=== PATIENT | female | born 1975 | race Two or more races ===

== ENCOUNTER 2017-08-16 09:58 | Emergency (ER) | payer SELFPAY ==
[~2017-08-16] VITALS: Ht 167.6 cm; Wt 81.6 kg
[2017-08-16] VITALS (13 sets, daily range): BP systolic 103–126; BP diastolic 52–84
[2017-08-16] MEDS ORDERED: DiphenhydrAMINE 50mg/ml Inj IM ONE (10:15)
[2017-08-16] MEDS ORDERED: Haloperidol 5mg/ml Inj IM ONE (10:15)
[2017-08-16 10:30] LABS: APPEARANCE,URINE CLEAR; KETONES,URINE 3+ (NEGATIVE); LEUKOCYTE ESTERASE ,URINE 1+ (NEGATIVE); NITRITE,URINE NEGATIVE (NEGATIVE); PH,URINE 6 (4.5-8.0); PROTEIN,URINE 3+ (NEGATIVE); UROBILINOGEN,URINE NORMAL MG/DL (0.0-1.0)
[2017-08-16] MEDS ORDERED: Thiamine HCl 100mg/ml 2 ml Inj IV SCH (10:30)
[2017-08-16 10:32] LABS: MEAN CORPUSCULAR HEMOGLOBIN 29.6 PG (27.0-31.0); MEAN CORPUSCULAR HGB CONC 32.2 G/DL (32.0-36.0); MEAN CORPUSCULAR VOLUME 92 FL (80-99); MEAN PLATELET VOLUME 7.1 FL (6.5-10.1); PLATELET COUNT 290 K/UL (150-450); RED BLOOD COUNT 4.08 M/UL (4.20-5.40); RED CELL DISTRIBUTION WIDTH 12.4 % (11.6-14.8); WHITE BLOOD COUNT 20.6 K/UL (4.8-10.8)
[2017-08-16 10:42] LABS: BACTERIA,URINE FEW /HPF; MUCUS,URINE FEW /LPF (NONE/OCC); SQUAMOUS EPITHELIAL CELL,UR FEW /LPF (NONE/OCC)
[2017-08-16 10:46] LABS: ANION GAP 21 mmol/L (5-15); CALCIUM 8.4 MG/DL (8.5-10.1); CARBON DIOXIDE 18 MMOL/L (21-32); CHLORIDE 106 MMOL/L (98-107); GLOMERULAR FILTRATION RATE > 60 mL/min (>60); POTASSIUM 3.3 MMOL/L (3.5-5.1); SODIUM 145 MMOL/L (136-145)
[2017-08-16 10:58] LABS: ALANINE AMINOTRANSFERASE 43 U/L (12-78); ALCOHOL < 3 mg/dL; ASPARTATE AMINO TRANSFERASE 48 U/L (15-37); THYROID STIMULATING HORMONE 1.192 uiU/mL (0.358-3.740); TOTAL PROTEIN 7.7 G/DL (6.4-8.2)
[2017-08-16 11:00] LABS: ACETAMINOPHEN < 2 MCG/ML (10-30)
[2017-08-16] MEDS ORDERED: LORazepam Inj 2mg/ml 1ml IV ONE (11:00)
[2017-08-16 11:14] LABS: BAND NEUTROPHILS % (MANUAL) 0 % (0-8); BASOPHILS % (MANUAL) 0 % (0-2); EOSINOPHILS % (MANUAL) 0 % (0-3); LYMPHOCYTES % (MANUAL) 8 % (20-45); NEUTROPHILS % (MANUAL) 88 % (45-75); PLATELET ESTIMATE ADEQUATE; PLATELET MORPHOLOGY NORMAL; TOTAL CELLS COUNTED 100
--- NOTE | 2017-08-16 12:52 | Diagnostic Imaging Report ---
Indication: Altered level of consciousness Technique: Continuous helical CT scanning of the head was performed without intravenous contrast material. Axial and coronal 5 mm sections were generated. Radiation dose was minimized using automated exposure control Dose: Total Dose Length Product - DLP [address] Dose Index - CTDIvol(s) 70.38 mGy. Comparison: none Findings: The ventricular system is normal in size and configuration. There is no shift of midline structures. No abnormal extra-axial fluid collections are noted. There is no evidence of intracerebral bleeding. No other abnormal high or low density areas are noted within the brain. The mastoids are clear. Included sinuses are clear. The included orbits are unremarkable. The calvarium is intact Impression: Normal CT scan of the head without contrast material. The CT scanner at [facility] is accredited by the [employer] and the scans are performed using protocols designed to limit radiation exposure to as low as reasonably achievable to attain images of sufficient resolution adequate for diagnostic evaluation.
--- NOTE | 2017-08-16 14:16 | Emergency Room Report ---
History of Present Illness General Chief Complaint: Behavioral Complaint Source: EMS Present Illness HPI Patient is brought in by [place] [employer]. The patient is well- known to be a homeless woman. She typically is chronically hallucinating but typically does not have severe behavioral issues. Today, the police department was called because she was running naked through the streets. She also had a rope tied around her head. She was being her head on the cement sidewalk. She was very combative. The patient is unable to give a history secondary to her mental status. Allergies: Coded Allergies: UNABLE TO ASSESS (Unverified , 08/16/17) Patient History Past Medical History: unable to obtain Past Surgical History: unable to obtain Pertinent Family History: unable to obtain Social History: Reports: alcohol use Nursing Documentation-[facility] Past Medical History Deferred: Pt Cognitively Impaired Review of Systems All Other Systems: limited Physical Exam Vital Signs Date Time Temp Pulse Resp B/P (MAP) Pulse Ox O2 Delivery O2 Flow Rate FiO2 08/16/17 09:55 112 20 125/84 98 Room Air 08/16/17 11:12 98.5 Sp02 EP Interpretation: reviewed, normal General Appearance: no apparent distress, alert, GCS 15, non-toxic, other - Agitated, hallucinating Head: normocephalic, other - Dry blood on the posterior scalp. ENT: hearing grossly normal, normal pharynx, no angioedema, normal voice Neck: full range of motion, supple/symm/no masses Respiratory: chest non-tender, lungs clear, normal breath sounds, no respiratory distress, no retraction, no accessory muscle use, speaking full sentences Cardiovascular #1: no edema, tachycardia Gastrointestinal: normal bowel sounds, non tender, soft, non-distended, no guarding, no rebound Rectal: deferred Musculoskeletal: back normal, normal range of motion, non-tender Neurologic: alert, responsive, motor strength/tone normal, sensory intact, speech normal Psychiatric: other - psychotic Reflexes: 3+ bicep (R), 3+ bicep (L), 3+ tricep (R), 3+ tricep (L), 3+ knee (R) , 3+ knee (L), 3+ ankle (R), 3+ ankle (L) Skin: normal color, no rash, warm/dry, well hydrated Medical Decision Making Diagnostic Impression: Primary Impression: Psychosis Additional Impression: Drug intoxication with delirium ER Course This patient presents with psychosis and drug intoxication. She was also found to have significantly elevated white blood cell count. I am unsure of the etiology of this. There is no evidence of urinary tract infection with a normal urinalysis. Chest x-ray is normal. There are no physical exam findings consistent with a meningitis. CT of the head is negative. This could be an inflammatory response to drug use. Regardless, given that I cannot properly evaluate this patient, I will go ahead and do a CT of the abdomen and pelvis to further investigate the etiology of the leukocytosis. I will also hydrate the patient and repeat the laboratory studies. Patient is turned over to Dr. Tsang. Laboratory Tests Test 08/16/17 09:18 08/16/17 14:00 White Blood Count 20.6 K/UL (4.8-10.8) H 23.5 K/UL (4.8-10.8) *H Red Blood Count 4.08 M/UL (4.20-5.40) L 3.71 M/UL (4.20-5.40) L Hemoglobin 12.1 G/DL (12.0-16.0) 11.1 G/DL (12.0-16.0) L Hematocrit 37.4 % (37.0-47.0) 34.1 % (37.0-47.0) L Mean Corpuscular Volume 92 FL (80-99) 92 FL (80-99) Mean Corpuscular Hemoglobin 29.6 PG (27.0-31.0) 30.0 PG (27.0-31.0) Mean Corpuscular Hemoglobin Concent 32.2 G/DL (32.0-36.0) 32.7 G/DL (32.0-36.0) Red Cell Distribution Width 12.4 % (11.6-14.8) 12.9 % (11.6-14.8) Platelet Count 290 K/UL (150-450) 261 K/UL (150-450) Mean Platelet Volume 7.1 FL (6.5-10.1) 7.3 FL (6.5-10.1) Neutrophils (%) (Auto) % (45.0-75.0) % (45.0-75.0) Lymphocytes (%) (Auto) % (20.0-45.0) % (20.0-45.0) Monocytes (%) (Auto) % (1.0-10.0) % (1.0-10.0) Eosinophils (%) (Auto) % (0.0-3.0) % (0.0-3.0) Basophils (%) (Auto) % (0.0-2.0) % (0.0-2.0) Differential Total Cells Counted 100 100 Neutrophils % (Manual) 88 % (45-75) H 84 % (45-75) H Lymphocytes % (Manual) 8 % (20-45) L 10 % (20-45) L Monocytes % (Manual) 4 % (1-10) 4 % (1-10) Eosinophils % (Manual) 0 % (0-3) 0 % (0-3) Basophils % (Manual) 0 % (0-2) 0 % (0-2) Band Neutrophils 0 % (0-8) 2 % (0-8) Platelet Estimate Adequate Adequate Platelet Morphology Normal Normal Red Blood Cell Morphology Normal Normal Urine Color Pale yellow Urine Appearance Clear Urine pH 6 (4.5-8.0) Urine Specific [place] 1.020 (1.005-1.035) Urine Protein 3+ (NEGATIVE) H Urine Glucose (UA) 1+ (NEGATIVE) H Urine Ketones 3+ (NEGATIVE) H Urine Occult Blood 4+ (NEGATIVE) H Urine Nitrite Negative (NEGATIVE) Urine Bilirubin Negative (NEGATIVE) Urine Urobilinogen Normal MG/DL (0.0-1.0) Urine Leukocyte Esterase 1+ (NEGATIVE) H Urine RBC 2-4 /HPF (0 - 2) H Urine WBC 2-4 /HPF (0 - 2) Urine Squamous Epithelial Cells Few /LPF (NONE/OCC) Urine Bacteria Few /HPF (NONE) Urine Mucus Few /LPF (NONE/OCC) H Urine HCG, Qualitative Negative Sodium Level 145 MMOL/L (136-145) Potassium Level 3.3 MMOL/L (3.5-5.1) L Chloride Level 106 MMOL/L (98-107) Carbon Dioxide Level 18 MMOL/L (21-32) L Anion Gap 21 mmol/L (5-15) H Blood Urea Nitrogen 19 mg/dL (7-18) H Creatinine 1.0 MG/DL (0.55-1.30) Estimate Glomerular Filtration Rate > 60 mL/min (>60) Glucose Level 75 MG/DL (74-106) Calcium Level 8.4 MG/DL (8.5-10.1) L Total Bilirubin 0.5 MG/DL (0.2-1.0) Aspartate Amino Transferase (AST) 48 U/L (15-37) H Alanine Aminotransferase (ALT) 43 U/L (12-78) Alkaline Phosphatase 71 U/L (46-116) Total Protein 7.7 G/DL (6.4-8.2) Albumin 3.8 G/DL (3.4-5.0) Globulin 3.9 g/dL Albumin/Globulin Ratio 1.0 (1.0-2.7) Thyroid Stimulating Hormone (TSH) 1.192 uiU/mL (0.358-3.740) Salicylates Level 0.9 ug/mL (2.8-20) L Urine Opiates Screen Negative (NEGATIVE) Acetaminophen Level < 2 MCG/ML (10-30) L Urine Barbiturates Screen Negative (NEGATIVE) Phencyclidine (PCP) Screen Negative (NEGATIVE) Urine Amphetamines Screen Positive (NEGATIVE) H Urine Benzodiazepines Screen Positive (NEGATIVE) H Urine Cocaine Screen Negative (NEGATIVE) Urine Marijuana (THC) Screen Positive (NEGATIVE) H Serum Alcohol < 3 mg/dL EKG Diagnostic Results Rate: tachycardiac ST Segments: no acute changes Other Impression S.tachycardia Rhythm Strip Diag. Results EP Interpretation: yes Rate: 100's Rhythm: other - S.tachycardia Chest X-Ray Diagnostic Results Chest X-Ray Diagnostic Results : Chest X-Ray Ordered: Yes # of Views/Limited/Complete: 1 View Indication: Other EP Interpretation: Yes Interpretation: no consolidation, no effusion, no pneumothorax, no acute cardiopulmonary disease Impression: No acute disease Electronically Signed by: Yusuf Last Vital Signs Date Time Temp Pulse Resp B/P (MAP) Pulse Ox O2 Delivery O2 Flow Rate FiO2 08/16/17 13:29 91 15 119/71 98 Room Air 08/16/17 11:12 98.5 Disposition: ADMITTED INPATIENT Condition: Serious Referrals: NON PHYSICIAN (PCP) BOB SHARMA D.O. Aug 16, 2017 14:16
[2017-08-16 14:20] LABS: MEAN CORPUSCULAR HGB CONC 32.7 G/DL (32.0-36.0); MEAN CORPUSCULAR VOLUME 92 FL (80-99); MEAN PLATELET VOLUME 7.3 FL (6.5-10.1); PLATELET COUNT 261 K/UL (150-450); RED BLOOD COUNT 3.71 M/UL (4.20-5.40); RED CELL DISTRIBUTION WIDTH 12.9 % (11.6-14.8)
[2017-08-16 14:23] LABS: WHITE BLOOD COUNT 23.5 K/UL (4.8-10.8)
[2017-08-16 14:45] LABS: BAND NEUTROPHILS % (MANUAL) 2 % (0-8); BASOPHILS % (MANUAL) 0 % (0-2); EOSINOPHILS % (MANUAL) 0 % (0-3); LYMPHOCYTES % (MANUAL) 10 % (20-45); NEUTROPHILS % (MANUAL) 84 % (45-75); PLATELET ESTIMATE ADEQUATE; PLATELET MORPHOLOGY NORMAL; TOTAL CELLS COUNTED 100
[2017-08-16] MEDS ORDERED: Vancomycin 1 GM in NS 275 ML IVPB ONE (15:00)
[2017-08-16] MEDS ORDERED: cefTRIAXone 1 GM in NS 55 ML IVPB ONE (15:00)
[2017-08-16] MEDS ORDERED: Vancomycin 1gm inj IVPB ONE (15:50)
--- NOTE | 2017-08-16 16:09 | Diagnostic Imaging Report ---
Clinical Indication: Abdominal pain Technique: No oral contrast utilized, per emergency room physician request IV administration nonionic contrast. In his obtained through the abdomen and pelvis. Multiplanar reconstructions were generated. Total dose length product 936.46 mGycm. CTDIvol(s) 16.14 mGy. Dose reduction achieved using automated exposure control Comparison: none Findings: Appendix is not definitely identified, but no findings to suggest acute appendicitis are evident. No evidence of diverticulosis or diverticulitis. No small bowel distention. No free or loculated intraperitoneal air or fluid. The liver is mildly hypoattenuating, consistent with fatty change, otherwise unremarkable. The gallbladder is nondistended, contains numerous radiolucent gallstones. There is also a calcified gallstone. No gross gallbladder wall thickening. No biliary ductal dilatation. The pancreas, spleen, adrenals, left kidney are unremarkable. Right kidney demonstrates a subcentimeter low-attenuation lesion which is too small to characterize. No renal or ureteral calculi, hydronephrosis, or hydroureter. The uterus and right ovary are unremarkable. A 4.3 cm cystic-appearing lesion is seen in the left adnexa. The included lung bases demonstrate posterior dependent atelectatic changes. The bones are unremarkable. Impression: No acute abnormality Fatty liver Cholelithiasis Subcentimeter low-attenuation right renal lesion, too small to characterize. No further follow-up necessary A cystic-appearing left adnexal lesion measuring 4.3 cm is seen. In a pre-menopausal woman, recommend no additional imaging or follow-up. In an early post-menopausal woman (<5 years since menopause), follow-up ultrasound at 6-12 months is recommended. In a late post-menopausal woman (>5 years since menopause), because of its size >3 cm, prompt evaluation with ultrasound is recommended. The CT scanner at [facility] is accredited by the [employer] and the scans are performed using protocols designed to limit radiation exposure to as low as reasonably achievable to attain images of sufficient resolution adequate for diagnostic evaluation. Recommendations for adnexal lesion management based on javon Juares al., J Am Linnea Radiol 10:675-81 (2013).
--- NOTE | 2017-08-16 16:53 | Diagnostic Imaging Report ---
Indication: Reason For Exam: AMS Technique: One view of the chest Comparison: none Findings: Lungs and pleural spaces are clear. Heart size is normal Impression: No acute process
[2017-08-16 17:31] LABS: BASOPHILS % (AUTO) 0.3 % (0.0-2.0); EOSINOPHILS % (AUTO) 0.3 % (0.0-3.0); LYMPHOCYTES % (AUTO) 15.8 % (20.0-45.0); MEAN CORPUSCULAR HEMOGLOBIN 28.6 PG (27.0-31.0); MEAN CORPUSCULAR HGB CONC 31.3 G/DL (32.0-36.0); MEAN CORPUSCULAR VOLUME 91 FL (80-99); MEAN PLATELET VOLUME 6.7 FL (6.5-10.1); MONOCYTES % (AUTO) 1.8 % (1.0-10.0); NEUTROPHILS % (AUTO) 81.8 % (45.0-75.0); PLATELET COUNT 223 K/UL (150-450); RED BLOOD COUNT 3.54 M/UL (4.20-5.40); RED CELL DISTRIBUTION WIDTH 12.4 % (11.6-14.8); WHITE BLOOD COUNT 12.9 K/UL (4.8-10.8)
== END 2017-08-16 22:00 | disposition home or self-care (01) ==
LOC: EDBD 09:58 → EMR 10:34 → EDBD 10:34 → EMR 22:00
DX: F29 Unspecified psychosis not due to a substance or known physiological condition (principal); T43.621A Poisoning by amphetamines, accidental (unintentional), initial encounter; T40.7X1A Poisoning by cannabis (derivatives), accidental (unintentional), initial encounter; Y92.9 Unspecified place or not applicable; K76.0 Fatty (change of) liver, not elsewhere classified; K80.20 Calculus of gallbladder without cholecystitis without obstruction; R41.82 Altered mental status, unspecified
CPT/HCPCS: 36415; 70450; 71010; 74177; 80053; 80307; 81003; 81025; 84443; 85007; 85025; 99285; G0480; J0696; J1200; J1630; J3370; J7050; Q9967; 80329